=== PATIENT | male | born 1960 | race Caucasian/White ===

== ENCOUNTER 2021-08-16 11:06 | Emergency (ER) | payer OTHER ==
[~2021-08-16] VITALS: Ht 160 cm; Wt 90.9 kg
[2021-08-16 11:45] VITALS: BP 154/97
[2021-08-16] MEDS: ERYTHROMYCIN 0.5% 3.5 GM TUBE OPHTHALMIC OINTMENT OS ONE (12:56)
== END 2021-08-16 13:04 | disposition home or self-care (01) ==
LOC: EMS 11:06
DX: H01.004 Unspecified blepharitis left upper eyelid (principal); I10 Essential (primary) hypertension
CPT/HCPCS: 99281; 99282; Z7502; Z7610